=== PATIENT | male | born 2005 | race Caucasian/White ===

== ENCOUNTER 2024-04-01 19:16 | Emergency (ER) | payer BC | END 2024-04-02 00:20 | LOC: MW.ED 19:16 | DX: M54.2 Cervicalgia (principal); R20.2 Paresthesia of skin; Z75.8 Other problems related to medical facilities and other health care; W00.0XXA Fall on same level due to ice and snow, initial encounter | CPT/HCPCS: 72050; 72050-26; 99284 ==